=== PATIENT | female | born 1990 | race Caucasian/White ===

== ENCOUNTER 2016-11-25 13:09 | Emergency (ER) | payer MEDICAID ==
[~2016-11-25] VITALS: Ht 157.5 cm; Wt 50.8 kg
[~2016-11-25 13:09] MED LIST: BUSP7.5T3 PO; FLUO20CA8 PO; [UNRECOGNIZED DRUG - OTHER] PO
[2016-11-25] MEDS ORDERED: LIDOCAINE 1%, 20ML ONE (13:50)
[2016-11-25] MEDS ORDERED: DIPH,PERTUSS(ACELL),TET VAC/PF 0.5 ML IM-VACC ONE ×2 (13:52→14:00)
[2016-11-25 15:16] VITALS: BP 133/75
== END 2016-11-25 15:18 | disposition home or self-care (01) ==
LOC: ED 14:04
DX: S01.81XA Laceration without foreign body of other part of head, initial encounter (principal); F17.200 Nicotine dependence, unspecified, uncomplicated; F32.9 Major depressive disorder, single episode, unspecified; W54.0XXA Bitten by dog, initial encounter; Y93.89 Activity, other specified; Y92.098 Other place in other non-institutional residence as the place of occurrence of the external cause; Y99.8 Other external cause status; Z88.1 Allergy status to other antibiotic agents
CPT/HCPCS: 12051; 90471; 90715

== ENCOUNTER 2017-12-14 05:32 | Emergency (ER) | payer SELFPAY ==
[~2017-12-14] VITALS: Ht 157.5 cm; Wt 44.6 kg
[2017-12-14 05:33] VITALS: BP 117/79
[2017-12-14] MEDS ORDERED: LYZINE (05:36)
== END 2017-12-14 06:47 | disposition left against medical advice (07) ==
LOC: ED 05:45
DX: M54.2 Cervicalgia (principal); Z53.21 Procedure and treatment not carried out due to patient leaving prior to being seen by health care provider